=== PATIENT | male | born 1980 | race Caucasian/White ===

== ENCOUNTER 2017-02-28 08:48 | Emergency (ER) | payer SELFPAY ==
[~2017-02-28] VITALS: Ht 172.7 cm; Wt 65.5 kg
[2017-02-28 08:56] VITALS: BP 150/87; TEMP 98
[2017-02-28 11:05] VITALS: PULSE 79
== END 2017-02-28 11:06 | disposition home or self-care (01) ==
LOC: COL.ER 08:48
DX: R07.89 Other chest pain (principal); R00.2 Palpitations

== ENCOUNTER 2018-05-30 12:53 | Emergency (ER) | payer SELFPAY ==
[~2018-05-30] VITALS: Ht 172.7 cm; Wt 70.0 kg
[2018-05-30 13:04] VITALS: TEMP 99.2
[2018-05-30] MEDS ORDERED: NORCO 325 MG-51 TAB PO (13:57)
[2018-05-30] MEDS ORDERED: VOLTAREN 75 DR75 MG PO (13:57)
[2018-05-30 14:47] VITALS: BP 109/57; PULSE 66
== END 2018-05-30 14:46 | disposition home or self-care (01) ==
LOC: COL.ER 12:53
DX: S42.031A Displaced fracture of lateral end of right clavicle, initial encounter for closed fracture (principal); W19.XXXA Unspecified fall, initial encounter; Y92.830 Public park as the place of occurrence of the external cause; Y93.66 Activity, soccer
CPT/HCPCS: J1885; J2765; J3010

== ENCOUNTER 2018-06-02 13:48 | Day surgery (SDC) | payer SELFPAY ==
[~2018-06-02] VITALS: Ht 172.7 cm; Wt 68.6 kg
[2018-06-02] VITALS (7 sets, daily range): BP systolic 102–117; BP diastolic 52–71; PULSE 56–71; TEMP 97.9–98.1
[~2018-06-02 13:48] MED LIST: NORCO 325 MG-51 TAB PO; VOLTAREN 75 DR75 MG PO
[2018-06-02] MEDS ORDERED: NORCO 325 MG-7.1 TAB PO (15:07)
[2018-06-02] MEDS ORDERED: FLONASEALLERGY NS (15:08)
== END 2018-06-02 23:55 | disposition home or self-care (01) ==
LOC: SDCO 13:48 → SURG 21:30 → SDCO 23:55
DX: S42.021A Displaced fracture of shaft of right clavicle, initial encounter for closed fracture (principal); B27.90 Infectious mononucleosis, unspecified without complication; G89.18 Other acute postprocedural pain
CPT/HCPCS: OP; C1713; J1100; J2250; J2370; J2405; J2704; J2795; J3010; J7120